=== PATIENT | male | born 1945 | race American Indian/Alaskan Native ===

== ENCOUNTER 2018-03-04 17:16 | Inpatient (IN) | payer MEDICARE, OTHER, SELFPAY ==
[2018-03-04] VITALS (7 sets, daily range): BP systolic 102–153; BP diastolic 68–115; PULSE 77–137; RESP 16–18; TEMP 36.5–37.2; O2SAT 96–98; BMI 27.9; BMI 26.5; BMI 26.6
--- NOTE | 2018-03-04 17:37 | EKG12_ITS ---
Test Reason : A FIB Blood Pressure : / mmHG Vent. Rate : 123 BPM Atrial Rate : 127 BPM P-R Int : 000 ms QRS Dur : 108 ms QT Int : 350 ms P-R-T Axes : 000 027 -46 degrees QTc Int : 501 ms Atrial fibrillation with rapid ventricular response Cannot rule out Inferior infarct , age undetermined Abnormal ECG Confirmed by NAHUN SILVERIO, KIARA ([id number]), slot editor ELO BRADLEY ([id number]) on 03/08/2018 8:52:48 AM Referred By: Confirmed By:KIARA GARNICA MD
--- NOTE | 2018-03-04 17:43 | NURSING ---
NO OLD EKGS
--- NOTE | 2018-03-04 17:45 | RAD_ITS ---
STUDY: X-RAY CHEST REASON FOR EXAM: Male, 73 years old. New onset of atrial fibrillation. TECHNIQUE: Single frontal view of the chest. COMPARISON: None. FINDINGS: The lungs are mildly hyperexpanded. There is no demonstrated pleural abnormality. There is borderline cardiomegaly. Normal mediastinum and wing. Normal visualized pulmonary arteries. There is aortic tortuosity. Normal visualized thoracic spine. Normal visualized ribs, clavicles, and shoulders. There is no demonstrated abnormality of the visualized soft tissue structures of the upper abdomen. RAD/Chest 1 View (Portable) IMPRESSION: Borderline cardiomegaly with mild hyperexpansion. No acute pathology. Electronically Signed: Steve Zamudio MD at 18:13 EDT , Service support ,
[2018-03-04] MEDS: Aspirin 81 MG TAB.CHEW 324 MG PO (17:52)
[2018-03-04] MEDS: Enoxaparin 100 MG/ML Syringe 90 MG SC (17:52)
[2018-03-04] MEDS: dilTIAZem 25 MG/5 ML Vial 10 MG IV BOLUS (17:52)
[2018-03-04] MEDS: 0.9% Normal Saline 1,000 ML 150 ML IV (17:53)
[2018-03-04 18:26] LABS: Absolute Lymphocyte Count 1.38 X10^3/ul (0.83-4.51); Absolute Neutrophil Count 8.2 X10^3/uL (2.0-7.7); Basophil# 0.02 X10^3/uL; Basophil% 0.2 % (0-1); Eosinophil# 0.17 X10^3/uL; Eosinophils% 1.6 % (0-5); Hematocrit 48.3 % (40-54); Hemoglobin 16.6 g/dl (13.0-16.5); Lymphocyte # 1.38 X10^3/ul (4.0); Lymphocyte % 13.3 % (19-41); Mean Corp Hgb Conc 34.4 g/gl (32-36); Mean Corpuscular Hgb 30.1 pg (27.0-32.0); Mean Corpuscular Volume 87.5 fL (80-94); Mean Platelet Vol. 9.7 fl (6.2-12.0); Monocyte# 0.53 X10^3/uL; Monocyte% 5.1 % (0-10); Neutrophil # 8.23 X10^3/uL (2.7-7.7); Neutrophil % 79.7 % (47-70); Platelet Count 216 K/mm3 (150-450); RBC Distribution Width CV 13.2 % (11.6-14.6); RBC Distribution Width SD 42.4 fl (35.1-43.9); Red Blood Count 5.52 M/mm3 (4.6-6.2); White Blood Count 10.3 K/mm3 (4.4-11.0)
[2018-03-04 18:27] LABS: POSITIVE COUNT NO; POSITIVE DIFFERENTIAL NO; POSITIVE MORPHOLOGY NO
[2018-03-04 18:42] LABS: Anion Gap 11 (5-15); BUN 13 mg/dL (7-18); BUN/Creat Ratio 9.9 RATIO (10-20); Calcium,Total 9.1 mg/dL (8.5-10.1); Chloride 107 mmol/L (98-107); Creatinine, Serum 1.31 mg/dL (0.70-1.30); EST Glomerular Filtration Rate 57 mL/min (>60); Est Glom Filt Rate - Afr Amer 69 mL/min (>60); Estimated Creatinine Clearance 54.29 ml/min; Glucose 146 mg/dL (74-106); Sodium Level 139 mmol/L (136-145); Thyroid Stim Hormone (TSH) 1.17 uIU/mL (0.358-3.74)
[2018-03-04] MEDS: dilTIAZem 25 MG/5 ML Vial 20 MG IV BOLUS (18:52)
[2018-03-04 20:07] LABS: Prothrombin Time (Protime)PT. 12.7 SECONDS (11.7-14.9)
[2018-03-04 20:08] LABS: Partial Thromboplast Time 30.1 Seconds (24.1-36.2)
--- NOTE | 2018-03-04 20:52 | ECHOD_ITS ---
Reason For Study: AFib Procedure This was a 2D Doppler, Color Flow transthoracic echocardiogram. Exam performed portable in patient room. Left Ventricle Normal LV size. Sigmoid septum. Left ventricular systolic function is normal. The estimated ejection fraction is 60 %. Transmitral diastolic flow velocities suggest moderate (stage 2) diastolic dysfunction (pseudonormal pattern). No regional wall motion abnormalities noted. Right Ventricle Normal RV size. Normal systolic function. Atria Normal left atrium. Normal right atrium. Mitral Valve Normal mitral valve. Mild (1+) eccentric mitral valve insufficiency. Tricuspid Valve Normal tricuspid valve. Mild (1+) tricuspid valve insufficiency. Pulmonary artery systolic pressure is 30 mmHg. Aortic Valve Normal aortic valve. Trisinus/trileaflet aortic valve. Pulmonic Valve Normal pulmonic valve. Great Vessels Mildly dilated aortic root. The pulmonary artery is normal size. Inferior vena cava collapse with sniff. Pericardium/Pleural No pericardial effusion. MMode/2D Measurements & Calculations LVIDd: 4.5 cm IVSd: 1.4 cm Ao root diam: 4.0 cm LVIDs: 3.1 cm LVPWd: 1.1 cm RVDd: 3.5 cm FS: 32.1 % LAV(MOD-bp): 36.7 ml LVAd ap4: 33.6 cm2 SV(MOD-sp4): 59.5 ml LAV(MOD-bp) Indexed: 17.5 ml/m2 EDV(MOD-sp4): 106.4 ml LAV(MOD-sp2): 34.8 ml EDV(sp4-el): 113.3 ml LAV(MOD-sp4): 37.0 ml LVAs ap4: 19.4 cm2 ESV(MOD-sp4): 46.9 ml ESV(sp4-el): 49.1 ml EF(MOD-sp4): 55.9 % EF(sp4-el): 56.6 % SV(sp4-el): 64.2 ml LA A4 area: 15.2 cm2 RA A4 area: 11.7 cm2 Time Measurements MV dec time: 0.19 sec Doppler Measurements & Calculations MV E max ki: 81.9 cm/sec Lat Peak E' Ki: 12.1 cm/sec Med Peak E' Ki: 8.5 cm/sec MV A max ki: 40.8 cm/sec E/E' lat: 6.8 E/E' med: 9.6 MV E/A: 2.0 Ao V2 max: 100.3 cm/sec LV V1 max: 101.5 cm/sec PA V2 max: 101.0 cm/sec Ao max P.0 mmHg LV V1 max P.1 mmHg PI end-d ki: 65.0 cm/sec TR max ki: 257.3 cm/sec TR max P.5 mmHg Interpretation Summary Normal LV size. Left ventricular systolic function is normal. The estimated ejection fraction is 60 %. Transmitral diastolic flow velocities suggest moderate (stage 2) diastolic dysfunction (pseudonormal pattern). Mild (1+) eccentric mitral valve insufficiency. Mild (1+) tricuspid valve insufficiency. Ordering Physician: Curtis Holland Referring Physician: [facility] Performed By: Adelaide Souza, VIJAY, RVT
--- NOTE | 2018-03-04 20:57 | PCM.HP.STD ---
Problem List (1) New onset a-fib Status: Acute (2) Hypertriglyceridemia Status: Chronic (3) Arthritis Status: Chronic (4) BPH (benign prostatic hyperplasia) Status: Chronic (5) Ulcerative colitis Status: Acute History of Present Illness Date of Admission: 03/04/18 Chief Complaint: Dizziness The patient is a 73 year old M with a h/o of hypertriglyceridemia who presents with acute onset of lightheadedness. He was sitting on the couch this afternoon and was feeling fine. He got up to go to the bathroom and he felt very dizzy, lightheaded and he became nauseated and had multiple episodes of emesis. He denied CP, Fevers, chills, SOB or syncope. He presented to the ER with a normal troponin but an EKG consistent with a-fib in RVR. He was started on a cardizem drip and transferred to the PCU. Past Medical History Past Medical History (Chronic Problems): Chronic Problems Hypertriglyceridemia (Chronic) Arthritis (Chronic) BPH (benign prostatic hyperplasia) (Chronic) Allergies amoxicillin [From Augmentin] Allergy (Verified 03/04/18 17:42) Hives clavulanic acid [From Augmentin] Allergy (Verified 03/04/18 17:42) Hives clindamycin Allergy (Verified 03/04/18 17:42) Hives Penicillins Allergy (Verified 03/04/18 17:42) Hives Home Medications: Ambulatory Orders Medication Instructions Recorded Finasteride [Proscar] 5 mg PO DAILY 03/04/18 Surgical History: arthscropcy, hip, arthroscopy, knee, colectomy, - - ileostomy Lives: Spouse/ Significant Other Smoking Status: Former smoker Alcohol: None Drugs: None - *Family History Maternal History Items: - - No heart disease or afib Review of Systems Constitutional: Denies: Chills, Fever, Weight Change HEENT: Denies: Head Aches, Sinus Congestion, Sinus Drainage Cardiovascular: Reports: Light Headedness. Denies: Chest Pain, Palpitations Respiratory: Denies: Cough, Shortness of breath at rest, Sputum production Gastrointestinal: Reports: Nausea, Vomiting. Denies: Abdominal Pain Genitourinary: Denies: Dysuria Musculoskeletal: Denies: Joint Pain, Joint Tenderness Skin: Denies: Rash, Wounds Neurological: Denies: Numbness, Tingling, Focal weakness Psychiatric: Denies: Anxiety, Depression Hematologic/ Lymphatic: Denies: Easy Bruising, Easy Bleeding VTE Information - Inpt Only VTE Present on Admission: No Patient Problems: Active and Suspected Problems New onset a-fib (Acute) Ulcerative colitis (Acute) - Physical Exam General: Alert, Oriented x3, Cooperative, No apparent distress HEENT: Atraumatic, PERRLA, EOMI Oral: Moist Mucosa Neck: Supple, No JVD Lungs: Clear to auscultation, Normal air movement, No rhonchi, No wheeze, No rales Cardiovascular: No murmurs, Tachycardic, - - irregular rhythm Abdomen: Soft, Non Tender, Non-Distended, No Hepato-splenomegaly, - - ostomy Extremities: No edema, Capillary Refill Less than 3 Seconds Skin: No rashes, No breakdown Musculoskeletal: No Tenderness to Palpation of Joints or Extremities Neurological: Neuro grossly intact, Sensory exam intact to light touch and pain Psych/Mental Status: Normal Affect, Appropriate Vital Signs Temp Pulse Resp BP Pulse Ox 97.7 F L 89 16 110/68 98 03/04/18 17:19 03/04/18 20:04 03/04/18 20:04 03/04/18 20:04 03/04/18 20:04 Assessment/Plan All Active Problems New onset a-fib (Acute) Ulcerative colitis (Acute) 1. New-onset afib with RVR/CKD3 - CHADSVASC of 2, would recommend chronic anticoagulation - He has his medications filled through the [place] - Echo in the am - TSH was normal, troponin normal - therapeutic lovenox BID - N/V has resolved - c/w cardizem drip overnight - IVF@100 for tonight given his nausea and vomiting 2. BPH - stable - c/w finasteride 3. Hypertriglyceridemia - He has seen the lipid clinic at the [place] - Has an intolerance to statins and fenofibrates did not lower his TG - He is on [place]-3 1000 mg BID - Obtain lipids in the AM DVT: Lovenox/SCD Diet: Cardiac Code Visit Inpatient E&M: 36728 Init Hosp L3
--- NOTE | 2018-03-04 21:01 | HP.PCM_ITS ---
Problem List (1) New onset a-fib Status: Acute (2) Hypertriglyceridemia Status: Chronic (3) Arthritis Status: Chronic (4) BPH (benign prostatic hyperplasia) Status: Chronic (5) Ulcerative colitis Status: Acute History of Present Illness Date of Admission: 03/04/18 Chief Complaint: Dizziness The patient is a 73 year old M with a h/o of hypertriglyceridemia who presents with acute onset of lightheadedness. He was sitting on the couch this afternoon and was feeling fine. He got up to go to the bathroom and he felt very dizzy, lightheaded and he became nauseated and had multiple episodes of emesis. He denied CP, Fevers, chills, SOB or syncope. He presented to the ER with a normal troponin but an EKG consistent with a-fib in RVR. He was started on a cardizem drip and transferred to the PCU. Past Medical History Past Medical History (Chronic Problems): Chronic Problems Hypertriglyceridemia (Chronic) Arthritis (Chronic) BPH (benign prostatic hyperplasia) (Chronic) Allergies amoxicillin [From Augmentin] Allergy (Verified 03/04/18 17:42) Hives clavulanic acid [From Augmentin] Allergy (Verified 03/04/18 17:42) Hives clindamycin Allergy (Verified 03/04/18 17:42) Hives Penicillins Allergy (Verified 03/04/18 17:42) Hives Home Medications: Ambulatory Orders Medication Instructions Recorded Finasteride [Proscar] 5 mg PO DAILY 03/04/18 Surgical History: arthscropcy, hip, arthroscopy, knee, colectomy, - - ileostomy Lives: Spouse/ Significant Other Smoking Status: Former smoker Alcohol: None Drugs: None - *Family History Maternal History Items: - - No heart disease or afib Review of Systems Constitutional: Denies: Chills, Fever, Weight Change HEENT: Denies: Head Aches, Sinus Congestion, Sinus Drainage Cardiovascular: Reports: Light Headedness. Denies: Chest Pain, Palpitations Respiratory: Denies: Cough, Shortness of breath at rest, Sputum production Gastrointestinal: Reports: Nausea, Vomiting. Denies: Abdominal Pain Genitourinary: Denies: Dysuria Musculoskeletal: Denies: Joint Pain, Joint Tenderness Skin: Denies: Rash, Wounds Neurological: Denies: Numbness, Tingling, Focal weakness Psychiatric: Denies: Anxiety, Depression Hematologic/ Lymphatic: Denies: Easy Bruising, Easy Bleeding VTE Information - Inpt Only VTE Present on Admission: No Patient Problems: Active and Suspected Problems New onset a-fib (Acute) Ulcerative colitis (Acute) - Physical Exam General: Alert, Oriented x3, Cooperative, No apparent distress HEENT: Atraumatic, PERRLA, EOMI Oral: Moist Mucosa Neck: Supple, No JVD Lungs: Clear to auscultation, Normal air movement, No rhonchi, No wheeze, No rales Cardiovascular: No murmurs, Tachycardic, - - irregular rhythm Abdomen: Soft, Non Tender, Non-Distended, No Hepato-splenomegaly, - - ostomy Extremities: No edema, Capillary Refill Less than 3 Seconds Skin: No rashes, No breakdown Musculoskeletal: No Tenderness to Palpation of Joints or Extremities Neurological: Neuro grossly intact, Sensory exam intact to light touch and pain Psych/Mental Status: Normal Affect, Appropriate Vital Signs Temp Pulse Resp BP Pulse Ox 97.7 F L 89 16 110/68 98 03/04/18 17:19 03/04/18 20:04 03/04/18 20:04 03/04/18 20:04 03/04/18 20:04 Assessment/Plan All Active Problems New onset a-fib (Acute) Ulcerative colitis (Acute) 1. New-onset afib with RVR/CKD3 - CHADSVASC of 2, would recommend chronic anticoagulation - He has his medications filled through the [place] - Echo in the am - TSH was normal, troponin normal - therapeutic lovenox BID - N/V has resolved - c/w cardizem drip overnight - IVF@100 for tonight given his nausea and vomiting 2. BPH - stable - c/w finasteride 3. Hypertriglyceridemia - He has seen the lipid clinic at the [place] - Has an intolerance to statins and fenofibrates did not lower his TG - He is on [place]-3 1000 mg BID - Obtain lipids in the AM DVT: Lovenox/SCD Diet: Cardiac Code Visit Inpatient E&M: 73484 Init Hosp L3
[2018-03-05] VITALS (25 sets, daily range): BP systolic 79–120; BP diastolic 62–92; PULSE 66–101; RESP 16–21; TEMP 36.4–37.1; O2SAT 93–98
--- NOTE | 2018-03-05 00:18 | ED.VISSUMM ---
- ER Visit Summary Date of Service: 03/05/18 Chief Complaint: Weakness History of Present Illness: The patient is a 73 M who is otherwise a very healthy gentleman who got up off the couch night and suddenly felt weak and his heart was racing. He asked his to call the squad. He has a history of BPH and takes finasteride. He has an ileostomy and bilateral knee replacements. He is a non-smoker. He denies chest pain or shortness of breath. Physical Examination: Afebrile noted tachycardia at 133 normotensive Gen: Well-nourished well-developed Head: Normocephalic atraumatic Eyes: Perrl EOMI ENT: TMs clear no rhinorrhea moist mucous membranes Neck: Supple no lymphadenopathy no JVD nontender CVS: Irregularly irregular rhythm with rapid circular response no murmurs normal S1-S2 Respiratory: No distress clear to auscultation bilaterally chest nontender Abdomen: Soft nontender nondistended normal bowel sounds no masses ileostomy present Back: Nontender Extremity: Nontender no edema Skin: Normal color no rash Neuro: alert orientated ?3 CN II-XII intact normal strength sensation reflexes gait cerebellar Psych: Normal affect normal mood Test Results: EKG confirmed atrial fibrillation with RVR. Chest x-ray negative. CBC chemistries magnesium TSH troponin coags essentially negative. Noted renal insufficiency at creatinine 1.31 glucose 146. Emergency Department Course and Treatment: Patient received aspirin and Lovenox. He is placed on a Cardizem drip which has controlled his rate down to the 90s. He has not converted and the plan is admission into the hospital. Impression: 1. New onset A. fib with RVR This note was generated with [employer] dictation software. It may contain incorrect words, spelling, and punctuation that were not noted in review of the chart prior to signing ED Disposition - Plan for ED Patient: Disposition: Acute Care Hospital [facility] Chief Complaint: Palpitations
[2018-03-05] MEDS: 0.9% Normal Saline 1,000 ML 100 ML IV ×2 (02:57→13:26)
[2018-03-05 06:46] LABS: Absolute Lymphocyte Count 2.05 X10^3/ul (0.83-4.51); Absolute Neutrophil Count 4.7 X10^3/uL (2.0-7.7); Basophil# 0.03 X10^3/uL; Basophil% 0.4 % (0-1); Eosinophils% 2.5 % (0-5); Hematocrit 42.5 % (40-54); Hemoglobin 14.8 g/dl (13.0-16.5); Lymphocyte # 2.05 X10^3/ul (4.0); Mean Corp Hgb Conc 34.8 g/gl (32-36); Mean Corpuscular Hgb 30.1 pg (27.0-32.0); Mean Corpuscular Volume 86.4 fL (80-94); Mean Platelet Vol. 9.4 fl (6.2-12.0); Monocyte# 0.89 X10^3/uL; Monocyte% 11.3 % (0-10); Neutrophil # 4.71 X10^3/uL (2.7-7.7); Neutrophil % 59.7 % (47-70); POSITIVE COUNT NO; POSITIVE DIFFERENTIAL NO; POSITIVE MORPHOLOGY NO; Platelet Count 229 K/mm3 (150-450); RBC Distribution Width CV 13.2 % (11.6-14.6); RBC Distribution Width SD 41.1 fl (35.1-43.9); Red Blood Count 4.92 M/mm3 (4.6-6.2); White Blood Count 7.9 K/mm3 (4.4-11.0)
[2018-03-05 07:07] LABS: Anion Gap 11 (5-15); BUN 11 mg/dL (7-18); BUN/Creat Ratio 9.2 RATIO (10-20); Calcium,Total 8.2 mg/dL (8.5-10.1); Chloride 110 mmol/L (98-107); Cholesterol 163 mg/dL (200); EST Glomerular Filtration Rate 63 mL/min (>60); Est Glom Filt Rate - Afr Amer 77 mL/min (>60); Estimated Creatinine Clearance 59.26 ml/min; Glucose 96 mg/dL (74-106); High Density Lipoprotein 35 mg/dL; Potassium 3.4 mmol/L (3.5-5.1); Sodium Level 143 mmol/L (136-145); Triglycerides 326 mg/dL; Very Low Density Lipoprotein 65 mg/dL (5-40)
[2018-03-05 09:53] LABS: Hemoglobin A1c 5.5 % (4.2-6.3)
[2018-03-05] MEDS: Finasteride 5 MG Tablet PO (10:07)
[2018-03-05] MEDS: Enoxaparin 100 MG/ML Syringe 90 MG SC ×2 (10:08→21:50)
[2018-03-05] MEDS: dilTIAZem 60 MG Tablet PO ×3 (12:20→23:37)
--- NOTE | 2018-03-05 13:41 | PCM.PROGNOTE ---
Patient Problems: Active and Suspected Problems New onset a-fib (Acute) Ulcerative colitis (Acute) Subjective: Resting comfortably in bed no acute issues. HR improved. Still in fib. No prior hx fib. 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 - Physical Exam General: Alert, Oriented x3, Cooperative HEENT: Atraumatic, PERRLA, EOMI, Normocephalic Neck: Supple, No JVD, Negative Carotid Bruits Lungs: Clear to auscultation, Normal air movement Cardiovascular: Regular rate, No murmurs Abdomen: Bowel Sounds Present, Soft, Non Tender Extremities: No edema, Capillary Refill Less than 3 Seconds Skin: No rashes, No breakdown Musculoskeletal: No Tenderness to Palpation of Joints or Extremities Neurological: Cranial nerves II-XII grossly intact Psych/Mental Status: Normal Affect, Appropriate, Alert and oriented to time, place, person, mood and affect Vital Signs Temp Pulse Resp BP Pulse Ox 97.6 F L 78 21 H 114/77 94 03/05/18 11:00 03/05/18 13:00 03/05/18 13:00 03/05/18 13:00 03/05/18 13:00 Oxygen Delivery Method Room Air Weight: 190 lb 7.67 oz Body Mass Index (BMI) 26.5 Intake and Output for Last 24 Hours 03/03/18 03/04/18 03/05/18 23:59 23:59 23:59 Intake Total 200 / 200 2848 / 2848 Balance 200 / 200 2848 / 2848 Laboratory Tests Past 24 Hrs 03/05/18 03/05/18 03/05/18 06:25 06:25 06:25 WBC 7.9 RBC 4.92 Hgb 14.8 Hct 42.5 MCV 86.4 MCH 30.1 MCHC 34.8 RDW 13.2 RDW Differential 41.1 Plt Count 229 MPV 9.4 Immature Gran % (Auto) 0.100 Neut % (Auto) 59.7 Lymph % (Auto) 26.0 [place] % (Auto) 11.3 H Eos % (Auto) 2.5 Baso % (Auto) 0.4 Absolute Neuts (auto) 4.7 Absolute Lymphs (auto) 2.05 Total Counted Not Reportable Sodium 143 Potassium 3.4 L Chloride 110 H Carbon Dioxide 22.0 Anion Gap 11 BUN 11 Creatinine 1.20 Estim Creat Clear Calc 59.26 Est GFR (MDRD) Af Amer 77 Est GFR (MDRD) Non-Af 63 BUN/Creatinine Ratio 9.2 L Glucose 96 Hemoglobin A1c 5.5 Calcium 8.2 L Triglycerides 326 H Cholesterol 163 LDL Cholesterol 63 VLDL Cholesterol 65 H HDL Cholesterol 35 L Medical Necessity - Tobacco Use Smoking Status: Former smoker Assessment/Plan All Active Problems New onset a-fib (Acute) Ulcerative colitis (Acute) 1. AF with RVR - cardizem drip to po. add BB if uncontrolled. TSH normal. trop neg. Echo pending. on therapeutic Lovenox. 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 -chadvasc score 1 (age). 2. Hypertrigliceridemia - statin intolerant. On fish oil. Failed fibrate. a1c 5.5 - borderline prediabetic. 3. CKD III 4. BPH - finasteride DVT ppx: lovenox DC planning: monitor HR on oral dilt. pt needs echo tomorrow, further w/u pending these results. This patient was seen by Matthew Drew PA-C under the supervision of Doctor Perry.
--- NOTE | 2018-03-05 13:47 | PN_ITS ---
Patient Problems: Active and Suspected Problems New onset a-fib (Acute) Ulcerative colitis (Acute) Subjective: Resting comfortably in bed no acute issues. HR improved. Still in fib. No prior hx fib. No wall man. - Physical Exam General: Alert, Oriented x3, Cooperative HEENT: Atraumatic, PERRLA, EOMI, Normocephalic Neck: Supple, No JVD, Negative Carotid Bruits Lungs: Clear to auscultation, Normal air movement Cardiovascular: Regular rate, No murmurs Abdomen: Bowel Sounds Present, Soft, Non Tender Extremities: No edema, Capillary Refill Less than 3 Seconds Skin: No rashes, No breakdown Musculoskeletal: No Tenderness to Palpation of Joints or Extremities Neurological: Cranial nerves II-XII grossly intact Psych/Mental Status: Normal Affect, Appropriate, Alert and oriented to time, place, person, mood and affect Vital Signs Temp Pulse Resp BP Pulse Ox 97.6 F L 78 21 H 114/77 94 03/05/18 11:00 03/05/18 13:00 03/05/18 13:00 03/05/18 13:00 03/05/18 13:00 Oxygen Delivery Method Room Air Weight: 190 lb 7.67 oz Body Mass Index (BMI) 26.5 Intake and Output for Last 24 Hours 03/03/18 03/04/18 03/05/18 23:59 23:59 23:59 Intake Total 200 / 200 2848 / 2848 Balance 200 / 200 2848 / 2848 Laboratory Tests Past 24 Hrs 03/05/18 03/05/18 03/05/18 06:25 06:25 06:25 WBC 7.9 RBC 4.92 Hgb 14.8 Hct 42.5 MCV 86.4 MCH 30.1 MCHC 34.8 RDW 13.2 RDW Differential 41.1 Plt Count 229 MPV 9.4 Immature Gran % (Auto) 0.100 Neut % (Auto) 59.7 Lymph % (Auto) 26.0 [place] % (Auto) 11.3 H Eos % (Auto) 2.5 Baso % (Auto) 0.4 Absolute Neuts (auto) 4.7 Absolute Lymphs (auto) 2.05 Total Counted Not Reportable Sodium 143 Potassium 3.4 L Chloride 110 H Carbon Dioxide 22.0 Anion Gap 11 BUN 11 Creatinine 1.20 Estim Creat Clear Calc 59.26 Est GFR (MDRD) Af Amer 77 Est GFR (MDRD) Non-Af 63 BUN/Creatinine Ratio 9.2 L Glucose 96 Hemoglobin A1c 5.5 Calcium 8.2 L Triglycerides 326 H Cholesterol 163 LDL Cholesterol 63 VLDL Cholesterol 65 H HDL Cholesterol 35 L Medical Necessity - Tobacco Use Smoking Status: Former smoker Assessment/Plan All Active Problems New onset a-fib (Acute) Ulcerative colitis (Acute) 1. AF with RVR - cardizem drip to po. add BB if uncontrolled. TSH normal. trop neg. Echo pending. on therapeutic Lovenox. 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 -chadvasc score 1 (age). 2. Hypertrigliceridemia - statin intolerant. On fish oil. Failed fibrate. a1c 5.5 - borderline prediabetic. 3. CKD III 4. BPH - finasteride DVT ppx: lovenox DC planning: monitor HR on oral dilt. pt needs echo tomorrow, further w/u pending these results. This patient was seen by Matthew Drew PA-C under the supervision of Doctor Perry.
[2018-03-06] VITALS (12 sets, daily range): BP systolic 110–120; BP diastolic 61–86; PULSE 51–78; RESP 14–18; TEMP 36.2–36.9; O2SAT 94–96
--- NOTE | 2018-03-06 04:48 | EKG12_ITS ---
Test Reason : RHY CHANGE Blood Pressure : / mmHG Vent. Rate : 058 BPM Atrial Rate : 058 BPM P-R Int : 162 ms QRS Dur : 106 ms QT Int : 436 ms P-R-T Axes : 036 043 029 degrees QTc Int : 428 ms Sinus bradycardia Nonspecific T wave abnormality Abnormal ECG When compared with ECG of 04-MAR-2018 17:25, MANUAL COMPARISON REQUIRED, DATA IS UNCONFIRMED Confirmed by LYNDSEY SILVERIO, PIPE ([id number]), story editor ELO BRADLEY ([id number]) on 03/10/2018 2:36:17 PM Referred By: ABRIL Confirmed By:PIPE SOLORIO MD
[2018-03-06] MEDS: dilTIAZem 60 MG Tablet PO (05:51)
[2018-03-06 06:28] LABS: Anion Gap 10 (5-15); BUN 11 mg/dL (7-18); BUN/Creat Ratio 8.5 RATIO (10-20); Calcium,Total 8.2 mg/dL (8.5-10.1); Chloride 112 mmol/L (98-107); Creatinine, Serum 1.29 mg/dL (0.70-1.30); EST Glomerular Filtration Rate 58 mL/min (>60); Est Glom Filt Rate - Afr Amer 70 mL/min (>60); Estimated Creatinine Clearance 55.13 ml/min; Glucose 100 mg/dL (74-106); Potassium 3.7 mmol/L (3.5-5.1); Sodium Level 144 mmol/L (136-145)
[2018-03-06] MEDS: dilTIAZem CD 240 MG Capsule PO (10:01)
[2018-03-06] MEDS: Enoxaparin 100 MG/ML Syringe 90 MG SC (10:02)
[2018-03-06] MEDS: Finasteride 5 MG Tablet PO (10:02)
--- NOTE | 2018-03-06 11:30 | CASEMGMT ---
Face to Face with patient for initial transition planning/care coordination assessment. VANESSA DECKER introduced self and role at [facility], pt voices understanding and consents to assessment at this time. Pt is sitting up in bed in no distress at this time. Pt is A/O x4 at this time and answers all questions appropriately at this time. Care providers, pharmacy, and demographics verified. See attached link. Pt voices no further concerns/needs at this time. Advised pt to ask for CM if any further questions/concerns/needs arise, voices understanding. Pt to be sent home on [place]. Pt gets scripts through the [facility] and states plans to get f/u appt their soon. Pt given [place] 30day free card to start, voices understanding. PLAN: [place] VANESSA DECKER
--- NOTE | 2018-03-06 14:55 | DCINST_ITS ---
- Discharge Diagnoses Current Active Problems: Current Active and Chronic Problems New onset a-fib (Acute) Hypertriglyceridemia (Chronic) Arthritis (Chronic) BPH (benign prostatic hyperplasia) (Chronic) Ulcerative colitis (Acute) You will use the following diet at home:: Cardiac Your food should be the consistency of: Regular Your liquids should be the consistency of: Regular/Thin Discharge Activity: Return to Normal Activity Allergies/Adverse Reactions: Allergies amoxicillin [From Augmentin] Allergy (Verified 03/04/18 17:42) Hives clavulanic acid [From Augmentin] Allergy (Verified 03/04/18 17:42) Hives clindamycin Allergy (Verified 03/04/18 17:42) Hives Penicillins Allergy (Verified 03/04/18 17:42) Hives Medications to take at Discharge Finasteride [Proscar] 5 mg PO DAILY 03/04/18 [place]-3/Dha/Epa/Fish Oil [Fish Oil 1,000 mg Softgel] 1,000 mg PO BID 03/04/18 Diltiazem CD [Cardizem CD] 240 mg PO DAILY #30 cap 03/06/18 The following prescriptions were given: Diltiazem CD [Cardizem CD] 240 mg PO DAILY #30 cap Primary Care Physician: [facility] [Primary Care Provider] - Please follow up with your Primary Care Physician in: 1-2 weeks Test Results: Test results from this visit will be discussed in further detail at your follow- up appointment, if applicable. Please Follow Up With: [place] [facility] When: 1-2 weeks Proposed Discharge Date: 03/06/18
--- NOTE | 2018-03-06 15:00 | PCM.DC.SUM ---
Discharge Date and Diagnosis - Problem List Patient Problems: Active and Suspected Problems New onset a-fib (Acute) Ulcerative colitis (Acute) Date of Admission: 03/04/18 Date of Discharge: 03/06/18 - Primary Discharge Diagnosis Active and Suspected Problems New onset a-fib, RVR (Acute) Ulcerative colitis (Acute) BPH - Secondary Discharge Diagnosis Chronic Problems Hypertriglyceridemia (Chronic) Arthritis (Chronic) BPH (benign prostatic hyperplasia) (Chronic) Hospital Course and Treatment Imaging Results: RAD/Chest 1 View (Portable) IMPRESSION: Borderline cardiomegaly with mild hyperexpansion. No acute pathology. Echo: Interpretation Summary Normal LV size. Left ventricular systolic function is normal. The estimated ejection fraction is 60 %. Transmitral diastolic flow velocities suggest moderate (stage 2) diastolic dysfunction (pseudonormal pattern). Mild (1+) eccentric mitral valve insufficiency. Mild (1+) tricuspid valve insufficiency. Operations: None Procedures: 2-D Echocardiogram Summary of Care Provided: Physical exam on day of discharge: General: Resting comfortably NAD Psych: A/Ox3 normal affect HEENT: PEARRLA AT NC Neck: Supple NT CV: RRR no m/t/r/g/h Resp: CTA Abd: [id number] Soft NT no guarding or rigidity Ext: DP2+= no edema Skin: W/D normal turgor Lymph/Heme: No active bleeding or adenopathy Neuro: CN2-12 intact Hospital course: The patient is a 73 year old M with a hx of BPH, hypertriglyceridemia, who presented to the ER with c/o dizziness and was found to be in new onset Afib with RVR with elevated BP 151/115. He was placed on cardizem drip and sent to the PCU on tele. The following day his rate improved significantly and he was transitioned to cardizem PO. An echocardiogram was obtained with the above findings. The next day his rate converted back to NSR. He was changed to long acting cardizem 240 qd. His BP was well controlled while he was here. And he has no prior dx of htn. His chadvasc score was 1 for age and therefore not placed on oral anticoagulation. The patient was discharged home in stable condition. 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 Also of note he has elevated triglycerides but is statin and fibrate intolerant reportedly. Trigs 326 this admission. HDL 35, LDL 63. Also checked here: His A1C is 5.5. TSH and mag both WNL. Trop neg. This patient was seen by Matthew Drew PA-C under the supervision of Doctor Orlando. [] Discharge Diet: Low fat/ Low Cholesterol, 2000 mg Sodium Diet Discharge Activity: Return to Normal Activity Home Medications: Medications to take at Discharge Finasteride [Proscar] 5 mg PO DAILY 03/04/18 [place]-3/Dha/Epa/Fish Oil [Fish Oil 1,000 mg Softgel] 1,000 mg PO BID 03/04/18 Diltiazem CD [Cardizem CD] 240 mg PO DAILY #30 cap 03/06/18 Following Prescrptions Were Given to Patient: Diltiazem CD [Cardizem CD] 240 mg PO DAILY #30 cap [facility] - Please follow up with your Primary Care Physician in: 1-2 weeks Please Follow Up With: [place] cardiology When: 1-2 weeks Disposition: Home Minutes spent on discharge:: 35 Patient Condition:: Stable Medical Necessity - Tobacco Use Smoking Status: Former smoker Meaningful Use Info Meaningful Use Diagnoses (Choose all that apply): None applicable
--- NOTE | 2018-03-06 15:04 | DS.PCM_ITS ---
Discharge Date and Diagnosis - Problem List Patient Problems: Active and Suspected Problems New onset a-fib (Acute) Ulcerative colitis (Acute) Date of Admission: 03/04/18 Date of Discharge: 03/06/18 - Primary Discharge Diagnosis Active and Suspected Problems New onset a-fib, RVR (Acute) Ulcerative colitis (Acute) BPH - Secondary Discharge Diagnosis Chronic Problems Hypertriglyceridemia (Chronic) Arthritis (Chronic) BPH (benign prostatic hyperplasia) (Chronic) Hospital Course and Treatment Imaging Results: RAD/Chest 1 View (Portable) IMPRESSION: Borderline cardiomegaly with mild hyperexpansion. No acute pathology. Echo: Interpretation Summary Normal LV size. Left ventricular systolic function is normal. The estimated ejection fraction is 60 %. Transmitral diastolic flow velocities suggest moderate (stage 2) diastolic dysfunction (pseudonormal pattern). Mild (1+) eccentric mitral valve insufficiency. Mild (1+) tricuspid valve insufficiency. Operations: None Procedures: 2-D Echocardiogram Summary of Care Provided: Physical exam on day of discharge: General: Resting comfortably NAD Psych: A/Ox3 normal affect HEENT: PEARRLA AT NC Neck: Supple NT CV: RRR no m/t/r/g/h Resp: CTA Abd: [id number] Soft NT no guarding or rigidity Ext: DP2+= no edema Skin: W/D normal turgor Lymph/Heme: No active bleeding or adenopathy Neuro: CN2-12 intact Hospital course: The patient is a 73 year old M with a hx of BPH, hypertriglyceridemia, who presented to the ER with c/o dizziness and was found to be in new onset Afib with RVR with elevated BP 151/115. He was placed on cardizem drip and sent to the PCU on tele. The following day his rate improved significantly and he was transitioned to cardizem PO. An echocardiogram was obtained with the above findings. The next day his rate converted back to NSR. He was changed to long acting cardizem 240 qd. His BP was well controlled while he was here. And he has no prior dx of htn. His chadvasc score was 1 for age and therefore not placed on oral anticoagulation. The patient was discharged home in stable condition. 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 Also of note he has elevated triglycerides but is statin and fibrate intolerant reportedly. Trigs 326 this admission. HDL 35, LDL 63. Also checked here: His A1C is 5.5. TSH and mag both WNL. Trop neg. This patient was seen by Matthew Drew PA-C under the supervision of Doctor Orlando. [] Discharge Diet: Low fat/ Low Cholesterol, 2000 mg Sodium Diet Discharge Activity: Return to Normal Activity Home Medications: Medications to take at Discharge Finasteride [Proscar] 5 mg PO DAILY 03/04/18 [place]-3/Dha/Epa/Fish Oil [Fish Oil 1,000 mg Softgel] 1,000 mg PO BID 03/04/18 Diltiazem CD [Cardizem CD] 240 mg PO DAILY #30 cap 03/06/18 Following Prescrptions Were Given to Patient: Diltiazem CD [Cardizem CD] 240 mg PO DAILY #30 cap [facility] [[facility]] - Please follow up with your Primary Care Physician in: 1-2 weeks Please Follow Up With: [place] cardiology When: 1-2 weeks Disposition: Home Minutes spent on discharge:: 35 Patient Condition:: Stable Medical Necessity - Tobacco Use Smoking Status: Former smoker Meaningful Use Info Meaningful Use Diagnoses (Choose all that apply): None applicable
== END 2018-03-06 15:41 | disposition home or self-care (01) | DRG 309 ==
LOC: ED 18:29 → PCU 20:33
PROVIDERS: Physician Assistant; Admitting Provider Family Medicine; Emergency Provider Emergency Medicine; Visit Provider Internal Medicine
DX: I48.91 Unspecified atrial fibrillation (principal); K51.90 Ulcerative colitis, unspecified, without complications; N40.0 Benign prostatic hyperplasia without lower urinary tract symptoms; Z93.2 Ileostomy status; E78.1 Pure hyperglyceridemia; N18.3 Chronic kidney disease, stage 3 (moderate); R73.03 Prediabetes; M19.90 Unspecified osteoarthritis, unspecified site; Z90.49 Acquired absence of other specified parts of digestive tract
CPT/HCPCS: 36415; 71045; 80048; 80061; 83036; 83735; 84443; 84484; 85025; 85610; 85730; 93005; 93306; 99285; J7030; J0153; J2405

== ENCOUNTER 2020-03-07 21:40 | Emergency (ER) | payer MEDICARE, OTHER, SELFPAY ==
[2020-03-07 21:41] VITALS: BP 170/89; PULSE 85; RESP 18; TEMP 36.5; O2SAT 95; BMI 27.0
--- NOTE | 2020-03-07 22:13 | ED.VIS.GEN ---
History of Present Illness Chief Complaint: Complaint Detail of Chief Complaint: dysuria Informant: Patient, Significant Other Onset: Days - 2-3 Context: Gradual Onset Timing: Continuous Quality: burning Location: urethral Current Severity: Mild Maximum Severity: Moderate Worsened by: urinating Relieved by: nothing Associated Symptoms: fever over 101, minor hematuria w/o clots, ur urgency and freq Narrative: Patient states he has a history of BPH and had a greenlight procedure remotely. He is not having any perineal pain, but having urinary symptoms that have started gradually and in last 24 hours have worsened, and he has also developed a fever. He also states for the past 3 days he has had cold symptoms that he seems of caught from his . She is better, he was feeling malaised 2 days ago, but his cold symptoms seem to be improved throughout the last 24 hours. Nonproductive cough, congestion, runny nose, mild headache off and on. No dyspnea, no myalgias. They deny any known exposure to COVID that they know of. He denies any back pain, nausea, vomiting. He is having some mild lower abdominal mid pelvic discomfort, it is worse when he coughs. No history of urinary tract infections. - Past Medical History (1) New onset a-fib Status: Chronic (2) Ulcerative colitis Status: Chronic (3) Arthritis Status: Chronic (4) BPH (benign prostatic hyperplasia) Status: Chronic (5) Hypertriglyceridemia Status: Chronic Past Medical History - Allergies and Home Meds Allergies/Adverse Reactions: Allergies amoxicillin [From Augmentin] Allergy (Verified 03/07/20 21:52) Hives ciprofloxacin [From Cipro] Allergy (Verified 03/07/20 21:52) PT UNSURE OF REACTION clavulanic acid [From Augmentin] Allergy (Verified 03/07/20 21:52) Hives clindamycin Allergy (Verified 03/07/20 21:52) Hives Penicillins Allergy (Verified 03/07/20 21:52) Hives Primary Care Physician: [facility] [Primary Care Provider] - Surgical History: arthscropcy, hip, arthroscopy, knee, colectomy, - - ileostomy Lives: Spouse/ Significant Other Smoking Status: Former smoker - Family History Maternal Family History: Reports: - - No heart disease or afib Review of Systems General: Reports: Fever. Denies: Chills, Malaise, Sweats Eyes: Denies: Visual changes - bilaterally, Diplopia ENT: Reports: Rhinorrhea - With mild congestion. No sinus pressure.. Denies: Bilateral ear pain, Sore throat Cardiovascular: Denies: Chest pain, Palpitations Respiratory: Reports: Cough. Denies: Dyspnea, Sputum, Dyspnea on exertion Gastrointestinal: Reports: Abdominal pain. Denies: Nausea, Vomiting, Diarrhea - Normal ileostomy output, Melena, Hematochezia Genitourinary: Reports: Dysuria, Hematuria, Frequency Musculoskeletal: Denies: Neck pain, Back pain, Swelling, Extremity Pain Skin: Denies: Rash, Wounds Neurological: Denies: Headache, Weakness, Numbness Physical Exam Vital Signs/Narrative: Vital Signs Temp Pulse Resp BP Pulse Ox 03/07/20 21:41 97.7 F L 85 18 170/89 H 95 Inital Vital Signs reviewed: Yes General: Well nourished, Well developed, No Acute Distress - Well-appearing without tachycardia Head: Normocephalic, Atraumatic Eyes: Perrl, EOMI ENT: Moist mucous membranes, No rhinorrhea Neck: Supple, Nontender Cardiovascular: Regular rate, Regular rhythm, No murmurs. Negative for: Tachycardia Respiratory: No distress, CTA bilaterally, Chest nontender Abdomen: Soft, Nondistended, Normal bowel sounds, No masses, Tender - Very mild, suprapubic only. Negative for: Guarding, Rebound tenderness Back: Nontender, Normal Inspection. Negative for: CVA tenderness Extremities: Nontender, No edema Skin: Normal color, No rash, No Trauma Neurological: Alert, Oriented x3, Cranial nerves II-XII grossly intact, Normal Strength, Normal Sensation, Normal Gait Psychological: Normal affect, Normal Mood Diagnostic/Tx/Re-eval Impressions Abdomen/Pelvis CT 03/07/20 22:55 IMPRESSION: 1. Mild stranding around the bladder may indicate cystitis. 2. Bladder stone. 3. Prostate enlargement. 4. Additional findings above. Individualized dose optimization techniques were used for this CT. at [id number] Reported and signed by: Carol Ann Evans MD Electronically Signed: Carol Ann Evans MD at 23:52 EDT Tel , Service support , 03/07/20 22:55 Abdomen/Pelvis without Cont [CT] Stat Laboratory Results 03/07/20 03/07/20 03/07/20 21:45 23:20 23:20 WBC 10.2 RBC 5.35 Hgb 16.4 Hct 48.4 MCV 90.5 MCH 30.7 MCHC 33.9 RDW Std Deviation 42.8 RDW Coeff of Joao 13.0 Plt Count 241 MPV 9.1 Immature Gran % (Auto) 0.900 Neut % (Auto) 74.6 H Lymph % (Auto) 10.7 L [place] % (Auto) 9.8 Eos % (Auto) 3.5 Baso % (Auto) 0.5 Absolute Neuts (auto) 7.6 Absolute Lymphs (auto) 1.09 Nucleated RBC % 0 Sodium 139 Potassium 3.6 Chloride 106 Carbon Dioxide 28.0 Anion Gap 5 BUN 12 Creatinine 1.44 H Estim Creat Clear Calc 47.93 Est GFR (MDRD) Af Amer 62 Est GFR (MDRD) Non-Af 51 L BUN/Creatinine Ratio 8.3 L Glucose 113 H Calcium 9.4 Urine Color Red Urine Clarity Cloudy Urine pH 6.0 Ur Specific [place] 1.020 Urine Protein 500 H Urine Glucose (UA) Normal Urine Ketones 5 H Urine Occult Blood 250 H Urine Nitrite Negative Urine Bilirubin Negative Urine Urobilinogen Normal Ur Leukocyte Esterase 25 H Urine RBC > 100 SEEN Urine WBC 5-10 SEEN Ur Squamous Epith Cells 0 SEEN Urine Bacteria RARE Urine Mucus 0 SEEN - Medical Decision Making Initial urinalysis was obtained, which was positive for blood but only a small amount of leukocyte esterase and otherwise unremarkable with regards to infection indicators. Therefore further work-up was entertained including a CT. It shows a solitary 2.8 cm bladder stone, as well as inflammatory changes around the bladder consistent with cystitis. Given that his symptoms are more consistent with cystitis than his urinalysis, I decided to put him on antibiotics empirically and culture his urine. He should follow-up with urology. At this time, he is basically urinating a Dennis-Aid consistency as far as hematuria, without clots or urinary retention so I do not think he needs a [place] or irrigation. However, we discussed reasons why that may be indicated and reasons he should return to the ER if he needs to before he follows up with urology since we are headed into the weekend at the time of presentation. ED Disposition - Plan for ED Patient: Disposition: Home or Assisted Living Diagnosis: Acute hemorrhagic cystitis, Bladder stone Instructions: ED CYSTITIS Male Adult Prescriptions: Sulfamethoxazole/Trimethoprim [Bactrim Ds Tablet] 1 ea PO BID #20 tab Prescription Printed Referrals: Hany Waldrop MD [STAFF PHYSICIAN] - As soon as possible
[2020-03-07 22:35] LABS: Mucous, Urine 0 SEEN /hpf (<or=2+); Squamous Epithelial Cells - UA 0 SEEN /hpf (0-5)
[2020-03-07 22:51] LABS: Color, Urine Red (Yellow); Glucose, Dipstick Normal (Normal); Ketone-Dipstick 5 mg/dl (Negative); Leukocyte Esterase-Dipstick 25 /ul (Negative); Nitrite-Dipstick Negative (Negative); Occult Blood-Urine 250 /ul (Negative); Protein-Dipstick 500 mg/dl (Negative); Urine Bilirubin Dipstick Negative (Negative); Urine Clarity Cloudy (Clear); Urine Urobilinogen Normal (Normal)
--- NOTE | 2020-03-07 22:55 | CT_ITS ---
HISTORY: PAINFUL AND FREQUENT URINATION WITH FEVER X 1 DAYHX:A-FIB,BPH,ULCERATIVE COLITIS WITH COLECTOMY AND ILEOSTOMY ADDITIONAL HISTORY: None provided. EXAMINATION/TECHNIQUE: CT Abdomen And Pelvis W/O Contrast Injection Enteric contrast was not given. Number of images including paperwork: 571. A radiation dose optimization technique was used for this scan. COMPARISON: None FINDINGS: Evaluation of the abdominopelvic organs is limited in the absence of contrast. LOWER THORAX: No consolidation or pleural effusion. Mild basilar atelectasis. Coronary calcification. Small hiatal hernia. LIVER: No concerning focal lesion. GALLBLADDER: Calcified gallstones in the dependent gallbladder. BILE DUCTS: No significant biliary dilatation. SPLEEN: Unremarkable. PANCREAS: Unremarkable. ADRENAL GLANDS: Unremarkable. KIDNEYS/URETERS: Unremarkable. BOWEL: No bowel obstruction. No significant bowel wall thickening. Colectomy with right lower quadrant ostomy. FREE FLUID: No significant free fluid. FREE AIR: None. LYMPH NODES: No pathologic appearing adenopathy. PERITONEUM, RETROPERITONEUM AND MESENTERY: Otherwise unremarkable. VASCULATURE: Unremarkable as imaged. ABDOMINAL WALL: Small bowel containing right inguinal hernia without CT evidence of complication. PELVIS: The bladder is not well distended. A 2.8 cm stone is noted in the bladder. Minimal stranding adjacent to the bladder. Enlarged prostate. OSSEOUS AND SOFT TISSUE STRUCTURES: No acute skeletal findings. Degenerative changes. DEVICES: Left hip prosthesis. CT/Abdomen/Pelvis without Cont IMPRESSION: 1. Mild stranding around the bladder may indicate cystitis. 2. Bladder stone. 3. Prostate enlargement. 4. Additional findings above. Individualized dose optimization techniques were used for this CT. at 2353 Reported and signed by: Carol Ann Evans MD Electronically Signed: Carol Ann Evans MD at 23:52 EDT Tel , Service support ,
[2020-03-07 23:00] LABS: Bacteria RARE /hpf (None Seen); Red Blood Cells-Urine > 100 SEEN /hpf (0-5); White Blood Cells 5-10 SEEN /hpf (0-5)
[2020-03-07 23:30] LABS: Absolute Lymphocyte Count 1.09 X10^3/uL (0.83-4.51); Absolute Neutrophil Count 7.6 X10^3/uL (2.0-7.7); Basophil# 0.05 X10^3/uL; Basophil% 0.5 % (0-1); Eosinophil# 0.36 X10^3/uL; Eosinophils% 3.5 % (0-5); Hematocrit 48.4 % (40-54); Hemoglobin 16.4 g/dL (13.0-16.5); Lymphocyte # 1.09 X10^3/ul (4.0); Lymphocyte % 10.7 % (19-41); Mean Corp Hgb Conc 33.9 g/dL (32-36); Mean Corpuscular Hgb 30.7 pg (27.0-32.0); Mean Corpuscular Volume 90.5 fL (80-94); Mean Platelet Vol. 9.1 fl (6.2-12.0); Monocyte% 9.8 % (0-10); NRBC Flagged by Analyzer 0 % (0-5); Neutrophil # 7.62 X10^3/uL (2.7-7.7); Neutrophil % 74.6 % (47-70); Platelet Count 241 K/mm3 (150-450); RBC Distribution Width SD 42.8 fl (35.1-43.9); Red Blood Count 5.35 M/mm3 (4.6-6.2); White Blood Count 10.2 K/mm3 (4.4-11.0)
[2020-03-07 23:52] LABS: Anion Gap 5 (5-15); BUN 12 mg/dL (7-18); BUN/Creat Ratio 8.3 RATIO (10-20); Calcium,Total 9.4 mg/dL (8.5-10.1); Chloride 106 mmol/L (98-107); Creatinine, Serum 1.44 mg/dL (0.70-1.30); EST Glomerular Filtration Rate 51 mL/min (>60); Est Glom Filt Rate - Afr Amer 62 mL/min (>60); Estimated Creatinine Clearance 47.93 ml/min; Glucose 113 mg/dL (74-106); Potassium 3.6 mmol/L (3.5-5.1); Sodium Level 139 mmol/L (136-145)
[2020-03-08] MEDS: Smz/Tmp Ds Tablet 1 TABLET PO (00:14)
[2020-03-08 00:18] VITALS: BP 150/72; PULSE 86; RESP 18; O2SAT 97
== END 2020-03-08 00:19 | disposition home or self-care (01) ==
PROVIDERS: Emergency Provider Emergency Medicine
DX: N30.01 Acute cystitis with hematuria (principal); N21.0 Calculus in bladder; M19.90 Unspecified osteoarthritis, unspecified site; Z87.891 Personal history of nicotine dependence
CPT/HCPCS: 74176; 80048; 81001; 85025; 87086; 99285; A4216

== ENCOUNTER → 2020-03-10 | Outpatient (CLI) | payer MEDICARE, OTHER, SELFPAY ==
[2020-03-07 21:41] VITALS: BMI 27.0
== END | disposition home or self-care (01) ==
LOC: LABSPEC 16:56
PROVIDERS: Referring Provider Urology; Visit Provider Urology
DX: R82.998 Other abnormal findings in urine (principal)
CPT/HCPCS: 87086

== ENCOUNTER 2020-03-22 16:19 | Inpatient (IN) | payer MEDICARE, OTHER, SELFPAY ==
--- NOTE | 2020-03-14 11:10 | EKG12_ITS ---
Test Reason : PRE OP Blood Pressure : / mmHG Vent. Rate : 081 BPM Atrial Rate : 081 BPM P-R Int : 154 ms QRS Dur : 106 ms QT Int : 352 ms P-R-T Axes : 020 031 052 degrees QTc Int : 408 ms Normal sinus rhythm Normal ECG Confirmed by JOSE SILVERIO, BHAKTI ([id number]), editorial cartoonist CLOVER WATSON ([id number]) on 03/17/2020 2:32:31 PM Referred By: Hany Waldrop Confirmed By:KO GARCIA MD
[2020-03-21] VITALS (9 sets, daily range): BP systolic 107–148; BP diastolic 57–110; PULSE 60–89; RESP 16–18; TEMP 36.3–36.9; O2SAT 95–100; BMI 26.3
--- NOTE | 2020-03-21 | PROS_PTH ---
PATIENT: MIAN JONES LOC: MS3 U#:[id number] AGE/SX: 75/M ROOM: W[facility]315 RE03/22/[address]: Dr. Hany Waldrop MD : [id number] BED: 1 DIS: 03/23/2020 SPEC #: [id number] RECD: 03/24/20 07:31 STATUS: ARLIN RAÚL #: [id number] [place]: 03/21/20 00:[address]: Hany Waldrop DEPT: SURGICAL PATHOLOGY RECD BY: Dejuan Bryant ENTERED: 03/24/20 08:19 SP TYPE: TURP OT DR: [facility] Tissues: Prostate, NOS Procedures: Surgery Specimen Level IV HEADER OPERATION: Cysto, TUR prostate, Olympus, litholopaxy PRE-OP DIAGNOSIS: BPH; bladder stone TISSUE SUBMITTED: Prostate chips MICROSCOPIC DIAGNOSIS Prostate, transurethral resection: Benign nodular hyperplasia, glandular and stromal types. Mild chronic inflammation. Fragments of benign urothelium. AM:kwabena 03/25/20 MICROSCOPIC DESCRIPTION Slides are reviewed. GROSS DESCRIPTION Received is one container labeled with the patient's name and designated prostate chips. The specimen consists of multiple irregular fragments of pink-doll, rubbery, soft tissue that in aggregate weigh 26.6 gm and measure in aggregate 6 x 6 x 2.2 cm. Also present in the specimen container are multiple chalky, yellow calculi and fragments of calculi measuring in aggregate 2 x 2 x 0.6 cm. Ethnographic Materials Conservator portions are submitted in ten cassettes. / AM:kwabena 03/24/20 TC:3 CPT: 11497
--- NOTE | 2020-03-21 11:41 | NURSING ---
getting over cold, cough in am.
[2020-03-21] MEDS: Lactated Ringers 1,000 ML 100 ML IV (12:01)
--- NOTE | 2020-03-21 13:25 | HP.PCM_ITS ---
Problem List (1) BPH (benign prostatic hyperplasia) Status: Chronic Qualifiers: Lower urinary tract symptom presence: symptoms absent Qualified Code(s): N40.0 - Benign prostatic hyperplasia without lower urinary tract symptoms (2) Bladder stone Status: Acute History of Present Illness Date of Admission: 03/21/20 Chief Complaint: BPH with obstruction and bladder stone The patient is a 75 year old male with a history of a very large prostate therapy no prior TURP he has a very large bladder stone today working to proceed with laser of the bladder stone and also transurethral section of the prostate. Past Medical History Past Medical History (Chronic Problems): Chronic Problems New onset a-fib (Chronic) Hypertriglyceridemia (Chronic) Arthritis (Chronic) BPH (benign prostatic hyperplasia) (Chronic) Ulcerative colitis (Chronic) Allergies amoxicillin [From Augmentin] Allergy (Verified 03/13/20 15:16) Hives ciprofloxacin [From Cipro] Allergy (Verified 03/13/20 15:16) PT UNSURE OF REACTION clavulanic acid [From Augmentin] Allergy (Verified 03/13/20 15:16) Hives clindamycin Allergy (Verified 03/13/20 15:16) Hives Penicillins Allergy (Verified 03/13/20 15:16) Hives Home Medications: Ambulatory Orders Medication Instructions Recorded Finasteride [Proscar] 5 mg PO QHS 03/04/18 [place]-3/Dha/Epa/Fish Oil [Fish Oil 500 mg PO BID 03/04/18 1,000 mg Softgel] Aspirin 81 mg PO DAILY 03/07/20 Diltiazem CD [Cardizem CD] 240 mg PO DAILY 03/13/20 Sulfamethoxazole/Trimethoprim 1 ea PO BID 03/13/20 [Bactrim Ds Tablet] Surgical History: arthscropcy, hip, arthroscopy, knee, colectomy, - - ileostomy Smoking Status: Former smoker - *Family History Maternal History Items: - - No heart disease or afib Review of Systems Constitutional: Denies: Chills, Fever, Weight Change HEENT: Denies: Head Aches, Sinus Congestion, Sinus Drainage Cardiovascular: Denies: Chest Pain, Palpitations Respiratory: Denies: Cough, Shortness of breath at rest, Sputum production Gastrointestinal: Denies: Abdominal Pain, Nausea, Vomiting Genitourinary: Denies: Dysuria Musculoskeletal: Denies: Joint Pain, Joint Tenderness Skin: Denies: Rash, Wounds Neurological: Denies: Numbness, Tingling, Focal weakness Psychiatric: Denies: Anxiety, Depression, Homicidal Ideations, Suicidal Ideations Hematologic/ Lymphatic: Denies: Easy Bruising, Easy Bleeding VTE Information - Inpt Only VTE Present on Admission: No VTE Mechan Device Prophylaxis: SCD's Patient Problems: Active and Suspected Problems Bladder stone (Acute) - Physical Exam Vitals/I&O's: Vital Signs Temp Pulse Resp BP Pulse Ox 98.5 F 79 18 148/88 H 99 03/21/20 11:39 03/21/20 11:39 03/21/20 11:39 03/21/20 11:39 03/21/20 11:39 Oxygen Delivery Method Room Air Weight: 85.6 kg Body Mass Index (BMI) 26.3 General: Alert, Oriented x3, Cooperative HEENT: Atraumatic, PERRLA, EOMI, Normocephalic Neck: Supple, No JVD, Negative Carotid Bruits Lungs: Clear to auscultation, Normal air movement Cardiovascular: Regular rate, No murmurs Abdomen: Bowel Sounds Present, Soft, Non Tender Extremities: No edema, Capillary Refill Less than 3 Seconds Skin: No rashes, No breakdown Musculoskeletal: No Tenderness to Palpation of Joints or Extremities Neurological: Cranial nerves II-XII grossly intact Psych/Mental Status: Normal Affect, Appropriate Current Medications Lactated Ringer's () 1,000 mls @ 100 mls/hr IV .Q10H NAV Last Admin: 03/21/20 12:01 Dose: 100 mls/hr Documented by: Assessment/Plan All Active Problems Bladder stone (Acute) 75-year-old male with a very large bladder stone plan to treat the stone with the laser and then do a transurethral resection of prostate.
--- NOTE | 2020-03-21 13:33 | DCINST_ITS ---
Discharge Diet: Light diet - advance as tolerated Discharge Activity: May not drive while taking narcotic pain medications., May Shower Lifting Restrictions: no lifting Call your doctor if your incision/area has: Continuous Slow Oozing, Sudden Increased Bleeding, Increased Pain/ Swelling, Increased Redness, Foul Smelling Discharge, Swelling at the incision site Call your doctor if you observe: Fever of 101 or Higher Suture Line Care: Avoid Pulling/Pushing, Avoid Pinching/Bending Instructions: Transurethral Resection of the Prostate (TURP): Home Recovery Allergies/Adverse Reactions: Allergies amoxicillin [From Augmentin] Allergy (Verified 03/13/20 15:16) Hives ciprofloxacin [From Cipro] Allergy (Verified 03/13/20 15:16) PT UNSURE OF REACTION clavulanic acid [From Augmentin] Allergy (Verified 03/13/20 15:16) Hives clindamycin Allergy (Verified 03/13/20 15:16) Hives Penicillins Allergy (Verified 03/13/20 15:16) Hives Medications to take at Discharge [place]-3/Dha/Epa/Fish Oil [Fish Oil 1,000 mg Softgel] 500 mg PO BID 03/04/18 Diltiazem CD [Cardizem CD] 240 mg PO DAILY 03/13/20 Hydrocodone/Acetaminophen [[place] 5-325 Tablet] 1 each PO Q4H PRN PRN 7 Days #14 tablet 03/21/20 Smz/Tmp Ds [Bactrim Ds] 1 tab PO BID #14 tab 03/21/20 The following prescriptions were given: Smz/Tmp Ds [Bactrim Ds] 1 tab PO BID #14 tab Transmission Status: Pending to [id number] Hydrocodone/Acetaminophen [[place] 5-325 Tablet] 1 each PO Q4H PRN PRN 7 Days #14 tablet PRN Reason: Pain 1-10 Or Fever Transmission Status: Received by [id number] [[facility] - Test Results: Test results from this visit will be discussed in further detail at your follow- up appointment, if applicable. Please Follow Up With: Hany Waldrop MD When: in 2 weeks, please call to make an appointment.
--- NOTE | 2020-03-21 15:44 | OP.PCM_ITS ---
Problem List (1) BPH (benign prostatic hyperplasia) Status: Chronic Qualifiers: Lower urinary tract symptom presence: symptoms absent Qualified Code(s): N40.0 - Benign prostatic hyperplasia without lower urinary tract symptoms (2) Bladder stone Status: Acute Report of Operation Date of Procedure: 03/21/20 Pre-Operative Diagnosis: Bladder stone large 5 cm and very large prostate Post-Operative Diagnosis: Same Surgery/Procedure Performed:: Cystoscopy laser of bladder stone removal of fragments, transurethral resection of the prostate Description of Surgical Findings:: 75-year-old male with a history of a very large prostate he is developed a large bladder stone today working to remove the bladder stone and then working to proceed with a transurethral resection of the very large prostate. 75-year-old male was taken back to the operating room at the smooth induction of general anesthesia he was placed supine on the table the urethra and penis were prepped and draped in usual sterile fashion, went into the bladder with a 26 Divehi continuous flow resectoscope entire length the urethra was normal the sphincter was intact the verumontanum was identified he had bilateral hypertrophy right down to the verumontanum. Within the bladder I then identified a very large stone in the base of the bladder I switched over to the laser bridge and then used the thousand micron laser fiber took about 45 minutes to an hour to laser the stone and break it up with little tiny pieces and then flushed all the pieces of the bladder is a 5 cm stone in the bladder. After this I switched over to the resectoscope I resected the floor the prostate the right lobe of the prostate left lobe the prostate very carefully resected up to the apical tissue resected back to the verumontanum had a nice wide open channel from the view into the bladder neck with no obstruction no flapping tissue. I then used the vaporizer to vaporize the resection obtain hemostasis we put a catheter in the bladder with 60 cc in the balloon on mild traction and start him on bladder irrigation was taken back to PACU the urine was clear. Type of Anesthesia:: General Drains: 3 way luciano - Admit VTE Documentation VTE Present on Admission: No VTE Mechan Device Prophylaxis: SCD's
[2020-03-21] MEDS: Ketorolac 15 MG/ML Vial IV (18:30)
[2020-03-21] MEDS: Docusate Sodium 100 MG Capsule PO (20:56)
[2020-03-21] MEDS: Cephalexin 500 MG Capsule PO (20:56)
[2020-03-21] MEDS: 0.45% Normal Saline 1,000 ML 150 ML IV (21:02)
[2020-03-22] MEDS: Ketorolac 15 MG/ML Vial IV ×4 (00:36→17:50)
[2020-03-22 00:43] VITALS: BP 106/57; PULSE 79; RESP 16; TEMP 36.6; O2SAT 96
[2020-03-22] MEDS: 0.45% Normal Saline 1,000 ML 150 ML IV ×2 (03:34→09:55)
[2020-03-22 04:43] VITALS: BP 118/73; PULSE 77; RESP 16; TEMP 36.5; O2SAT 96
[2020-03-22] MEDS: Cephalexin 500 MG Capsule PO ×3 (05:03→21:05)
[2020-03-22 07:32] LABS: Hematocrit 39.1 % (40-54); Mean Corp Hgb Conc 33.2 g/dL (32-36); Mean Corpuscular Hgb 29.8 pg (27.0-32.0); Mean Corpuscular Volume 89.7 fL (80-94); Mean Platelet Vol. 8.9 fl (6.2-12.0); Platelet Count 285 K/mm3 (150-450); RBC Distribution Width CV 12.2 % (11.6-14.6); RBC Distribution Width SD 40.2 fl (35.1-43.9); Red Blood Count 4.36 M/mm3 (4.6-6.2); White Blood Count 14.3 K/mm3 (4.4-11.0)
--- NOTE | 2020-03-22 07:38 | PCM.PN.BLA ---
Progress Note 75-year-old male who underwent a TURP very large bladder stone very large prostate had a lot of excessive bleeding yesterday required traction and an enlarged balloon hopefully this will stop today the urine is much more clear but given the amount of bleeding he had yesterday we will continue with the catheter and irrigation hopefully tomorrow will get the catheter out. STROKE Vital Signs/Narrative: Vital Signs Temp Pulse Resp BP Pulse Ox 03/22/20 04:43 97.7 F L 77 16 118/73 96
[2020-03-22 07:53] LABS: Anion Gap 8 (5-15); BUN 17 mg/dL (7-18); BUN/Creat Ratio 11.6 RATIO (10-20); Calcium,Total 8.3 mg/dL (8.5-10.1); Chloride 105 mmol/L (98-107); Creatinine, Serum 1.46 mg/dL (0.70-1.30); EST Glomerular Filtration Rate 50 mL/min (>60); Est Glom Filt Rate - Afr Amer 61 mL/min (>60); Estimated Creatinine Clearance 47.28 ml/min; Glucose 133 mg/dL (74-106); Potassium 4.1 mmol/L (3.5-5.1); Sodium Level 135 mmol/L (136-145)
[2020-03-22 08:20] VITALS: BP 113/77; PULSE 77; RESP 12; TEMP 36.6; O2SAT 97
[2020-03-22] MEDS: dilTIAZem CD 240 MG Capsule PO (08:20)
[2020-03-22] MEDS: Pantoprazole Sodium 20 MG Tablet PO (08:20)
[2020-03-22] MEDS: 0.9% Normal Saline 1,000 ML 75 ML IV (11:05)
[2020-03-22 14:25] VITALS: BP 100/58; PULSE 68; RESP 14; TEMP 36.6; O2SAT 96
--- NOTE | 2020-03-22 16:24 | CM.UR ---
Reviewed chart. Noted complicated procedure. patient remained on bladder irrigation. Changed to IP status. Met with patient who denies any needs for discharge. Wes Barlow RN, CCM.
[2020-03-22 20:52] VITALS: BP 92/51; PULSE 67; RESP 16; TEMP 36.7; O2SAT 95
[2020-03-23] MEDS: 0.9% Normal Saline 1,000 ML 75 ML IV (00:16)
[2020-03-23] MEDS: Ketorolac 15 MG/ML Vial IV ×2 (00:17→06:33)
[2020-03-23 02:44] VITALS: BP 95/62; PULSE 60; RESP 18; TEMP 36.7; O2SAT 98
[2020-03-23] MEDS: Cephalexin 500 MG Capsule PO (06:33)
[2020-03-23 08:30] VITALS: BP 166/72; PULSE 66; RESP 18; TEMP 36.6; O2SAT 100
[2020-03-23] MEDS: dilTIAZem CD 240 MG Capsule PO (08:34)
[2020-03-23] MEDS: Pantoprazole Sodium 20 MG Tablet PO (08:35)
--- NOTE | 2020-03-23 10:47 | NURSING ---
dr brown in and removed 3-way f/c-pt given urinal and encouraged to drink plenty of fluids
[2020-03-23 13:00] VITALS: BP 121/71; PULSE 68; RESP 18; TEMP 36.7; O2SAT 97
== END 2020-03-23 13:43 | disposition home or self-care (01) | DRG 713 ==
LOC: SDC 16:33 → MS3 16:33
PROVIDERS: Anesthesiology; Admitting Provider Urology; Referring Provider Urology; Visit Provider Urology
DX: N40.1 Benign prostatic hyperplasia with lower urinary tract symptoms (principal); I48.20 Chronic atrial fibrillation, unspecified; N41.1 Chronic prostatitis; N21.0 Calculus in bladder; M19.90 Unspecified osteoarthritis, unspecified site; Z79.899 Other long term (current) drug therapy; Z79.82 Long term (current) use of aspirin; Z87.891 Personal history of nicotine dependence
CPT/HCPCS: 36415; 80048; 85027; 87635; 88305; 93005; 99251; C9803; J7030; J7120; G0463; J2405; U0003